=== PATIENT | male | born 1975 | race Caucasian/White ===

== ENCOUNTER 2022-11-02 02:10 | Emergency (ER) | payer BC, OTHER ==
[2022-11-02 02:32] VITALS: O2SAT 98
[2022-11-02] MEDS ORDERED: KETOROLAC 30 MG/ML VIAL IM STA (02:42)
--- NOTE | 2022-11-02 02:46 | ED Physician Documentation ---
PD HPI HEENT - Stated complaint Stated Complaint: TOOTH PX - Chief complaint Chief Complaint: Heent - History obtained from History obtained from: Patient - Additional information Additional information: 46yM presents to the ED with R lower jaw swelling and R lower dental pain X few days. he has chronic poor dentition. denies fever, difficulty swallowing, speaking, or open/closing mouth. PD PAST MEDICAL HISTORY - Present Medications Home Medications: Ambulatory Orders Medication Instructions Recorded Confirmed Amox/Clav 875/125 [Augmentin 1 tablet PO Q12H 10 Days #20 tablet 11/02/22 875/125 Tab] Citalopram Hydrobromide [Celexa] 20 mg PO DAILY PRN 11/02/22 11/02/22 atenoloL [Tenormin] 25 mg PO DAILY 11/02/22 11/02/22 - Allergies Allergies/Adverse Reactions: Allergies Allergy/AdvReac Type Severity Reaction Status Date / Time No Known Drug Allergies Allergy Verified 11/02/22 02:24 PD ED PE NORMAL - Vitals Vital signs reviewed: Yes - General General: Alert and oriented X 3, No acute distress, Well developed/nourished - HEENT HEENT: Atraumatic, PERRL, EOMI, Moist mucous membranes, Other (poor dentition with multiple caries. mild swelling to R lower jawline) Results - Vitals Vitals: Vital Signs - 24 hr 11/02/22 02:21 Temperature 36.8 C Heart Rate 78 Respiratory 16 Rate Blood Pressure 141/100 H O2 Saturation 98 Oxygen O2 Source Room air PD Medical Decision Making - ED course ED course: 46yM presents to the ED with dental pain and caries. no signs of ludwigs, no trismus. IM toradol provided with some relief. rx for antibotics sent to pharmacy. referred to emergency dental. return precautions given. Departure - Departure Disposition: 01 Home, Self Care Clinical Impression: Dental caries, Jaw swelling Condition: Good Instructions: ED Cavity Dental Follow-Up: Mandeep Vilchis DDS [Provider Admit Priv/Credential] - Prescriptions: Amox/Clav 875/125 [Augmentin 875/125 Tab] 1 tablet PO Q12H 10 Days #20 tablet Comments: You were seen in the emergency department for jaw swelling caused by dental cavities. Antibiotics were sent electronically to [facility] in [place]. Dr. Mandeep Vilchis, emergency dentist. Return to the emergency department if you have new or worsening symptoms or other concerns. Forms: PCP List
[2022-11-02 03:24] VITALS: BP 143/91
== END 2022-11-02 03:21 | disposition home or self-care (01) ==
LOC: ED 02:10
DX: K02.9 Dental caries, unspecified (principal); R22.0 Localized swelling, mass and lump, head; Z79.899 Other long term (current) drug therapy
CPT/HCPCS: 96372; 99283

== ENCOUNTER 2023-06-18 22:51 | Emergency (ER) | payer BC ==
[2023-06-18 23:06] VITALS: O2SAT 98
--- NOTE | 2023-06-19 00:11 | ED Physician Documentation ---
PD HPI HEENT - Stated complaint Stated Complaint: TOOTH PX - Chief complaint Chief Complaint: Heent - History obtained from History obtained from: Patient - Additional information Additional information: HPI from patient. Patient c/o dental pain with swelling, left lower 1st molar. No injury. No recen t dental fracture; the tooth involved is broken but this is not a new problem. The dental pain with surrounding swelling started 2-3 days ago, gradual onset but steadily worsening. Denies fever. Pain is worse with chewing. He says he has adequate pain control with OTC medication (tylenol, ibuprofen); his chief concern is infection. Review of Systems Constitutional: denies: Fever Throat: reports: Dental pain / toothache PD PAST MEDICAL HISTORY - Past Medical History Past Medical History: Yes Cardiovascular: Hypertension Respiratory: None Neuro: None Endocrine/Autoimmune: None GI: None : None HEENT: None Psych: Depression Musculoskeletal: None Derm: None - Past Surgical History Past Surgical History: No - Present Medications Home Medications: Ambulatory Orders Medication Instructions Recorded Confirmed Citalopram Hydrobromide [Celexa] 20 mg PO DAILY PRN 11/02/22 11/02/22 atenoloL [Tenormin] 25 mg PO DAILY 11/02/22 11/02/22 Aspirin Chewable [[facility] 81 mg PO DAILY 06/18/23 Aspirin] Amox/Clav 875/125 [Augmentin 1 tablet PO Q12H 7 Days #14 tablet 06/19/23 875/125 Tab] - Allergies Allergies/Adverse Reactions: Allergies Allergy/AdvReac Type Severity Reaction Status Date / Time No Known Drug Allergies Allergy Verified 06/18/23 22:59 - Social History Does the pt smoke?: No Smoking Status: Never smoker Does the pt drink ETOH?: Yes Does the pt have substance abuse?: No - Immunizations Immunizations are current?: No - POLST Patient has POLST: No PD ED PE NORMAL - Vitals Vital signs reviewed: Yes - General General: Alert and oriented X 3, No acute distress, Well developed/nourished - HEENT HEENT: Other (no visible swelling on exam of face and neck) PD ED PE EXPANDED - HEENT HEENT Visual: 1 - deformity (buccal half of the tooth is missing. there is mild-moderate surrounding gingival swelling without erythema or fluctuance. the tooth is tender to percussion. no discharge) Results - Vitals Vitals: Vital Signs - 24 hr 06/18/23 06/19/23 22:52 01:08 Temperature 36.6 C 36.8 C Heart Rate 73 64 Respiratory 18 18 Rate Blood Pressure 172/96 H 154/94 H O2 Saturation 98 98 Oxygen O2 Source Room air PD Medical Decision Making - ED course Complexity details: considered differential, d/w patient ED course: No overt external swelling of face/neck, but moderate gingival swelling adjacent to the left mandibular first molar. Given PO augmentin and e-prescribed one-week course of same. He says he has been having adequate pain relief with OTC medication. Return precautions reviewed. I instructed him to actively pursue follow up with dentist; his overall dentition is disproportionate to age (more wear and attrition than expected for age), and he would benefit from follow up with dentist even if his pain/swelling improve with the antibiotic. Departure - Departure Disposition: 01 Home, Self Care Clinical Impression: Tooth ache Condition: Good Instructions: ED Tooth Pain Prescriptions: Amox/Clav 875/125 [Augmentin 875/125 Tab] 1 tablet PO Q12H 7 Days #14 tablet Comments: You were given the first dose of an antibiotic (Augmentin) in the emergency department, and I have electronically submitted a 1-week course of this antibiotic to the [facility] pharmacy in [place]. As we discussed, you should start working on follow-up with a dentist as soon as possible. Even if the pain and swelling improved with the antibiotic, the condition of the affected tooth still should be addressed by dentistry. Discharge Date/Time: 06/19/23 01:08
[2023-06-19] MEDS: AMOX/CLAV 875 MG/125 MG TABLET PO STA (00:56)
[2023-06-19 01:15] VITALS: BP 154/94
== END 2023-06-19 01:08 | disposition home or self-care (01) ==
LOC: ED 22:51
DX: K08.89 Other specified disorders of teeth and supporting structures (principal); I10 Essential (primary) hypertension; Z79.82 Long term (current) use of aspirin
CPT/HCPCS: 99283